=== PATIENT | female | born 1985 | race Caucasian/White ===

== ENCOUNTER 2016-08-03 14:34 | Emergency (ER) | payer OTHER ==
[2016-08-03 14:50] VITALS: BMI 20.5
--- NOTE | 2016-08-03 14:51 | PDOC ---
Rapid Medical Evaluation Chief Complaint: Vaginal Bleeding Time Seen by Provider: 08/03/16 14:48 Medical Evaluation: Allergies Allergy/AdvReac Type Severity Reaction Status Date / Time codeine Allergy Mild Hives Verified 08/03/16 14:48 08/03/16 14:48 Pt comes with heavy vaginal beeding, and she is 8 weeks . This is the 2nd time she bled in . A1 Currently minimal bleeding. She does not know her blood type.
[2016-08-03 15:18] LABS: URINE APPEARANCE CLEAR; URINE BILIRUBIN NEGATIVE (NEGATIVE); URINE COLOR YELLOW; URINE GLUCOSE (UA) NEGATIVE (NEGATIVE); URINE KETONE NEGATIVE (NEGATIVE); URINE NITRITE NEGATIVE (NEGATIVE); URINE PROTEIN NEGATIVE (NEGATIVE); URINE UROBILINOGEN NEGATIVE E.U./dl (0.2-1.0)
[2016-08-03 15:44] LABS: URINE BLOOD 2+ (NEGATIVE); URINE LEUK ESTERASE TRACE (NEGATIVE)
[2016-08-03 15:51] LABS: URINE BACTERIA RARE /hpf (NONE SEEN); URINE MUCUS MANY; URINE RBC 2 /hpf (0-3); URINE WBC 3 /hpf (3-5)
--- NOTE | 2016-08-03 18:40 | PDOC ---
History of Present Illness - History of Present Illness Initial Comments: 08/03/16 18:57 The patient is a 30 year old female who is currently 8 weeks who presents to the ED complaining of vaginal bleeding. The patient reports her LMP was May 23, 2016. She notes she took an at home test, which was positive. She reports she had an appointment with her OB on 07/25/16, but could not make the appointment because her son was sick. She states she has an appointment with a fertility specialist soon. She notes she had two miscarriages in a row. She reports no heavy bleeding, just spotting. The patient denies any abdominal pain, headache, lightheadedness. The patient denies fever, chills, dysuria Surgical: , appendectomy <Citlaly Easton - Last Filed: 08/03/16 18:58> <Maude Garrison - Last Filed: 08/03/16 23:18> - General Chief Complaint: Vaginal Bleeding Stated Complaint: 8 WKS / BLEEDING Time Seen by Provider: 08/03/16 14:48 Past History <Citlaly Easton - Last Filed: 08/03/16 18:58> - Past Medical History Other medical history: denies - Surgical History Appendectomy: Yes - Reproductive History Is Patient Now?: Yes - Immunization History Immunization Up to Date: Yes - Psycho/Social/Smoking Cessation Hx Suicidal Ideation: No Smoking History: Never smoked Hx Alcohol Use: No Drug/Substance Use Hx: No <Maude Garrison - Last Filed: 08/03/16 23:18> - Past Medical History Allergies/Adverse Reactions: Allergies Allergy/AdvReac Type Severity Reaction Status Date / Time codeine Allergy Mild Hives Verified 08/03/16 14:48 Home Medications: Ambulatory Orders NK [No Known Home Medication] 08/03/16 Review of Systems - Review of Systems Able to Perform ROS?: Yes Comments:: 08/03/16 18:57 CONSTITUTIONAL: Absent: fever, chills, diaphoresis, generalized weakness, malaise, loss of appetite HEENT: Absent: rhinorrhea, nasal congestion, throat pain, throat swelling, difficulty swallowing, mouth swelling, ear pain, eye pain, visual Changes CARDIOVASCULAR: Absent: chest pain, syncope, palpitations, irregular heart rate, lightheadedness , peripheral edema RESPIRATORY: Absent: cough, shortness of breath, dyspnea with exertion, orthopnea, wheezing, stridor, hemoptysis GASTROINTESTINAL: Absent: abdominal pain, abdominal distension, nausea, vomiting, diarrhea, constipation, melena, hematochezia GENITOURINARY: +Vaginal bleeding.Absent: dysuria, frequency, urgency, hesitancy, hematuria, flank pain, genital pain MUSCULOSKELETAL: Absent: myalgia, arthralgia, joint swelling SKIN: Absent: rash, itching, pallor NEUROLOGIC: Absent: headache, focal weakness or paresthesias, dizziness, unsteady gait, seizure, mental status changes, bladder or bowel incontinence PSYCHIATRIC: Absent: anxiety, depression, suicidal or homicidal ideation, hallucinations. <Citlaly Easton - Last Filed: 08/03/16 18:58> *Physical Exam - Vital Signs Last Vital Signs Temp Pulse Resp BP Pulse Ox 97.9 F 75 20 110/69 99 08/03/16 14:48 08/03/16 14:48 08/03/16 14:48 08/03/16 14:48 08/03/16 14:48 - Physical Exam Comments: 08/03/16 18:57 GENERAL: Well developed, well nourished. Awake and alert. No acute distress. HEENT: Normocephalic, atraumatic. PERRLA, EOMI. No conjunctival pallor. Sclera are non- icteric. Moist mucous membranes. Oropharynx is clear. NECK: Supple. Full ROM. No JVD. Carotid pulses 2+ and symmetric, without bruits. No thyromegaly. No lymphadenopathy. CARDIOVASCULAR: Regular rate and rhythm. No murmurs, rubs, or gallops. Distal pulses are 2+ and symmetric. PULMONARY: No evidence of respiratory distress. Lungs clear to auscultation bilaterally. No wheezing, rales or rhonchi. ABDOMINAL: Soft. Non-tender. Non-distended. No rebound or guarding. No organomegaly. Normoactive bowel sounds. Pelvic: Deferred MUSCULOSKELETAL Normal range of motion at all joints. No bony deformities or tenderness. No CVA tenderness. EXTREMITIES: No cyanosis. No clubbing. No edema. No calf tenderness. SKIN: Warm and dry. Normal capillary refill. No rashes. No jaundice. NEUROLOGICAL: Alert, awake, appropriate. Cranial nerves 2-12 intact. No deficits to light touch and temperature in face, upper extremities and lower extremities. No motor deficits in the in face, upper extremities and lower extremities. PSYCHIATRIC: Cooperative. Good eye contact. Appropriate mood and affect. <Citlaly Easton - Last Filed: 08/03/16 18:58> - Vital Signs Last Vital Signs Temp Pulse Resp BP Pulse Ox 97.9 F 75 20 110/69 99 08/03/16 14:48 08/03/16 14:48 08/03/16 14:48 08/03/16 14:48 08/03/16 14:48 <Maude Garrison - Last Filed: 08/03/16 23:18> ED Treatment Course - ADDITIONAL ORDERS Additional order review: Laboratory Results 08/03/16 08/03/16 08/03/16 17:05 17:05 15:01 Beta HCG, Quant < 1.0 Urine Color Yellow Urine Appearance Clear Urine pH 5.0 Ur Specific [place] 1.023 Urine Protein Negative Urine Glucose (UA) Negative Urine Ketones Negative Urine Blood 2+ H Urine Nitrite Negative Urine Bilirubin Negative Urine Urobilinogen Negative Ur Leukocyte Esterase Trace H Urine RBC 2 Urine WBC 3 Ur Epithelial Cells Rare Urine Bacteria Rare Urine Mucus Many Urine HCG, Qual Positive Blood Type A POSITIVE Antibody Screen Negative - RADIOLOGY Radiograph Interpretation: 08/03/16 18:58 Pelvis ultrasound, transvesical and transvaginal Compared to prior examination dated 09/2015 The uterus is retroverted measuring 9.1 x 4.2 cm. Endometrial stripe measures 7 mm in thickness. A nabothian cyst is present measuring 5 mm. No intrauterine gestational sac is identified. The right ovary measures 3.5 x 2 cm with a few small cysts/follicles and normal vascular flow. Left ovary measures 2.6 x 2.5 cm with a few small cysts/follicles and normal vascular flow. Previously visualized complex left adnexal masslike density is no longer seen. Impression: Retroverted uterus. No intrauterine gestational sac is identified. Please correlate with quantitative serum beta hCG to determine further evaluation follow-up. Previously visualized complex left adnexal mass/cyst is no longer seen. Reported By: Carlos Fallon MD 08/03/16 1769 <Citlaly Easton - Last Filed: 08/03/16 18:58> - ADDITIONAL ORDERS Additional order review: Laboratory Results 08/03/16 08/03/16 08/03/16 17:05 17:05 15:01 Beta HCG, Quant < 1.0 Urine Color Yellow Urine Appearance Clear Urine pH 5.0 Ur Specific [place] 1.023 Urine Protein Negative Urine Glucose (UA) Negative Urine Ketones Negative Urine Blood 2+ H Urine Nitrite Negative Urine Bilirubin Negative Urine Urobilinogen Negative Ur Leukocyte Esterase Trace H Urine RBC 2 Urine WBC 3 Ur Epithelial Cells Rare Urine Bacteria Rare Urine Mucus Many Urine HCG, Qual Positive Blood Type A POSITIVE Antibody Screen Negative <Maude Garrison - Last Filed: 08/03/16 23:18> Medical Decision Making - Medical Decision Making 08/03/16 23:08 pt stated her LMP was at end of Apr 2016. She presents because she has had vaginal spotting intermittently for past several weeks - psh c section,AP serum preg test was positive but her bhcg was > 1 which is negative transvaginal US no IUP,normal ovaries plan-pt already had an appt w fertility specialist next week <Maude Garrison - Last Filed: 08/03/16 23:18> *DC/Admit/Observation/Transfer - Attestations Scribe Attestion: 08/03/16 18:57 Documentation prepared by Citlaly Easton, acting as medical photographer for Maude Garrison MD/DO. <Citlaly Easton - Last Filed: 08/03/16 18:58> <Maude Garrison - Last Filed: 08/03/16 23:18> Diagnosis at time of Disposition: Vaginal bleeding - Discharge Dispostion Disposition: HOME Condition at time of disposition: Stable - Patient Instructions Printed Discharge Instructions: DI for Miscarriage Additional Instructions: YOU NEED TO FOLLOW UP WITH YOUR [facility] PLEASE KEEP YOUR APPOINTMENT WITH YOUR SPECIALIST
[2016-08-03 18:59] VITALS: BP 120/80; PULSE 85; TEMP 97.6
== END 2016-08-03 19:01 | disposition home or self-care (01) ==
LOC: JER 14:34
DX: O26.891 Other specified pregnancy related conditions, first trimester (principal); N93.9 Abnormal uterine and vaginal bleeding, unspecified
CPT/HCPCS: 36415; 76817-TC; 81003; 81015; 84702; 84703; 86850; 86900; 86901; 99283-25